=== PATIENT | male | born 1970 | race Caucasian/White ===

== ENCOUNTER → 2022-02-03 00:22 | Outpatient (CLI) | payer OTHER, SELFPAY ==
[2022-02-03 13:23] LABS: SARS-CoV-2 RNA PCR Negative
== END ==
PROVIDERS: PCP Family Medicine; Visit Provider Internal Medicine Gastroenterology
DX: Z01.812 Encounter for preprocedural laboratory examination (principal); Z20.822 Contact with and (suspected) exposure to COVID-19
CPT/HCPCS: C9803; U0003; U0005

== ENCOUNTER 2022-02-06 00:15 | Day surgery (SDC) | payer OTHER, SELFPAY ==
[2022-01-26 14:26] VITALS: BMI 33.2
--- NOTE | 2022-02-05 12:25 | PM.HPGS ---
History of Present Illness History of Present Illness Consent: Risks, benefits, and alternatives have been discussed and questions answered. Patient agrees to proceed with procedure. Chief complaint: family hx of colon ca, neoplasm screening Narrative: Emory Gonzales is a 51 year old male Referred for colon cancer screening. His father had rectal cancer. Review of Systems Review of Systems: All systems reviewed & are unremarkable except as noted in HPI and below PMFSH Past Medical History Medical History HLD (hyperlipidemia) Family History Family History Father Rectal cancer Diabetes mellitus Social History Social History Smoking packs per day: 0.5 Smoking cigarettes per day: 10.0 Years smoked: 30 Smoking pack-years: 15.00 Smoking status: Former smoker Tobacco type: cigarettes Second hand tobacco smoke exposure: No Smoking end date: 04/18/17 Alcohol intake: current Drinks per week: 18 Substance use: never Substance use type: does not use Living arrangements: with family Gender identity (if verbalized by the patient): Male Spiritual care concerns: No Meds Home Medications and Allergies Home Medications Medication Instructions Recorded Confirmed Type No Home Medications 10/15/20 02/06/22 History Allergies Allergy/AdvReac Type Severity Reaction Status Date / Time Fruit Allergy Anaphylaxis Uncoded 02/06/22 06:37 Exam Resp: Auscultation: clear to auscultation bilaterally Cardio: Rate: regular rate Rhythm: regular rhythm GI: GI Palp: Yes Soft to palpation and No Tenderness to palpation present (GI) Assessment and Plan Assessment and plan (1) Colon cancer screening: Code(s): Z12.11 - Encounter for screening for malignant neoplasm of colon Status: Acute Assessment and Plan: Colonoscopy with possible biopsy or polypectomy or cautery or injection of substances.
[2022-02-06 06:39] VITALS: BP 120/82; PULSE 98; RESP 20; TEMP 36.2; O2SAT 98; BMI 34.1
[2022-02-06] MEDS: LACTATED RINGERS 1,000 ML 150 ML IV CONT (06:41)
--- NOTE | 2022-02-06 07:46 | P.PNAN_ITS ---
Anes - Initial Pre Proc Eval Procedure: Operation Date: 02/06/22 08:00 Proposed Procedures p Screening Colonoscopy - Rj Guardado MD Date/Time: 02/06/22 07:46 Surgeon: Rj Guardado MD Pre Op Diagnosis: family hx of colon ca, neoplasm screening Patient Data Age: 51 Gender: M Height: 1.78 m Weight: 107.9 kg Last Vital Signs Temp 36.2 C L 02/06/22 06:39 Pulse 98 02/06/22 06:39 Resp 20 02/06/22 06:39 BP 120/82 02/06/22 06:39 Pulse Ox 98 02/06/22 06:39 Allergies Allergy/AdvReac Type Severity Reaction Status Date / Time Fruit Allergy Anaphylaxis Uncoded 02/06/22 06:37 Home Medications Medication Instructions Recorded Confirmed Type No Home Medications 10/15/20 02/06/22 History Patient hx anesthesia problems: none Family hx anesthesia problems: none Results Review: All pre-operative results and documents have been reviewed as part of the pre-operative evaluation. [facility] Past Medical History Medical History HLD (hyperlipidemia) Family History Family History Father Rectal cancer Diabetes mellitus Social History Social History Smoking packs per day: 0.5 Smoking cigarettes per day: 10.0 Years smoked: 30 Smoking pack-years: 15.00 Smoking status: Former smoker Tobacco type: cigarettes Second hand tobacco smoke exposure: No Smoking end date: 04/18/17 Alcohol intake: current Drinks per week: 18 Substance use: never Substance use type: does not use Living arrangements: with family Gender identity (if verbalized by the patient): Male Spiritual care concerns: No Anes - Eval Final PreProcedure Day of Procedure 02/06/22 07:46 Patient weight: obese Heart: regular rate and rhythm Lungs: decreased breath sounds Airway: Mallampati scale class II Neurological: alert and oriented Last oral intake: >/= 8 hours ASA classification: II Emergent: no Anesthetic plan: proceed Anesthesia type and monitoring: general GIVS and standard monitoring Results Review: All pre-operative results and documents have been reviewed as part of the pre-operative evaluation. Informed Consent: The patient's anesthetic plan and its attendant risks and benefits were discussed with the patient/family/POA. Questions were solicited and answers provided to the satisfaction of the patient/family/POA.
[2022-02-06] MEDS: SIMETHICONE ORAL SUSPENSION 20 MG/0.3 ML 30 ML BOTTLE 0.6 ML IRRIGATION (08:00)
[2022-02-06 08:14] VITALS: BP 99/63; PULSE 77; RESP 18; O2SAT 96
[2022-02-06 08:24] VITALS: BP 113/77; PULSE 78; RESP 20; O2SAT 98
[2022-02-06 08:34] VITALS: BP 117/88; PULSE 81; RESP 20; O2SAT 97
== END 2022-02-06 08:42 | disposition home or self-care (01) ==
PROVIDERS: PCP Family Medicine; Visit Provider Internal Medicine Gastroenterology
PROC: 0DJD8ZZ Inspection of Lower Intestinal Tract, Via Natural or Artificial Opening Endoscopic (ICD-10-PCS; CPT 45378; principal; 2022-02-06 08:00)
DX: Z12.11 Encounter for screening for malignant neoplasm of colon (principal); D12.8 Benign neoplasm of rectum; K62.1 Rectal polyp; Z80.0 Family history of malignant neoplasm of digestive organs; Z87.891 Personal history of nicotine dependence; E66.9 Obesity, unspecified; Z68.34 Body mass index [BMI] 34.0-34.9, adult
CPT/HCPCS: 45385; 45381; 88305; C9803; J2704; J7120; U0003; U0005

== ENCOUNTER 2025-06-11 01:27 | Day surgery (SDC) | payer OTHER, SELFPAY ==
[2025-05-25 13:00] VITALS: BMI 33.7
--- OUTSIDE RECORDS SUMMARY | 2025-06-11 01:31 | XMS_ITS | Patient Health Record ---
Author Organization [facility] Address [address] [place] [address] Care Team Providers Care Plumber Name Role Phone Artemio Singer Primary Care Provider Reason For Referral No Information Plan Of Treatment No Information
--- OUTSIDE RECORDS SUMMARY | 2025-06-11 01:31 | XMS_ITS | Clinical Summary ---
Author Organization [facility] Address [address] [place] [address] Phone Care Team Providers Care Sales Order Specialist Name Role Phone Provider, None Primary Care Provider Unavailabl e Social History Tobacco Use Types Packs/Day Years Used Date Smoking Tobacco: Never Assessed Sex and Gender Information Value Date Recorded Sex Assigned at Not on file Legal Sex Male 11:01 AM CDT Gender Identity Not on file Sexual Orientation Not on file Plan of Treatment Health Maintenance Due Date Last Done Comments Hepatitis C Virus (HCV) Screening 1970 TdaP Immunization 1970 Hepatitis B Immunization (1 of 3 - 19+ 3-dose series) 1989 Cologuard 2015 Colonoscopy 2015 Colorectal Cancer Screening 2015 Immunochemical Fecal Occult Blood 2015 Pneumococcal Immunization (5 0+ years) (1 of 1 - PCV) 02/25/2020 Zoster Immunization (1 of 2) 02/25/2020 SARS-COV-2 Immunization (1 - 2023- season) 2024 Influenza Immunization (#1) 2025 Respiratory Syncytial Virus (RSV) Immunization (Adult) (1 - 1-dose 75+ series) 2045 Human Papillomavirus (HPV) Immunization Aged Out No longer eligible b ased on patient's age to complete this topic Meningococcal Immunization (ACWY) Aged Out No longer eligible based on patient's age to complete this topic Rotavirus Immunization Aged Out No lo nger eligible based on patient's age to complete this topic Insurance [employer] Care Teams Sales Order Specialist Relationship Specialty Start Date End Date Provider, None [place] PCP - General 07/22/21
[2025-06-11 06:43] VITALS: BP 130/89; PULSE 88; RESP 20; TEMP 36.6; O2SAT 98; BMI 33.5
[2025-06-11] MEDS: LACTATED RINGERS 1,000 ML 150 ML IV CONT (06:50)
--- NOTE | 2025-06-11 07:31 | WPDANESEPPF ---
Anes - Initial Pre Proc Eval Procedure: Operation Date: 06/11/25 08:00 Proposed Procedures p Screening Colonoscopy - Kendrick Montero MD Date/Time: 06/11/25 07:31 Surgeon: Kendrick Montero MD Pre Op Diagnosis: neoplasm screening Patient Data Age: 55 Gender: M Height: 1.78 m Weight: 106.1 kg Last Vital Signs Temp 36.6 C 06/11/25 06:43 Pulse 88 06/11/25 06:43 Resp 20 06/11/25 06:43 BP 130/89 06/11/25 06:43 Pulse Ox 98 06/11/25 06:43 O2 Del Method Room Air 06/11/25 06:43 Allergies Allergy/AdvReac Type Severity Reaction Status Date / Time Fruit Allergy Anaphylaxis Uncoded 06/11/25 06:42 Home Medications ?Medication ?Instructions ?Recorded ?Confirmed ?Type No Home Medications 10/15/20 05/25/25 History Patient hx anesthesia problems: none Family hx anesthesia problems: none Results Review: All pre-operative results and documents have been reviewed as part of the pre-operative evaluation. [facility] Past Medical History Medical History HLD (hyperlipidemia) Family History Family History Father Rectal cancer Diabetes mellitus Social History Social History Smoking packs per day: 0.5 Smoking cigarettes per day: 10.0 Years smoked: 20 Smoking pack-years: 10.00 Smoking status: Former smoker Tobacco type: cigarettes Second hand tobacco smoke exposure: No Smoking end date: 04/18/17 Alcohol intake: current Drinks per week: 14 Substance use: never Substance use type: does not use Living arrangements: with family Occupation/Education: occupation Gender identity (if verbalized by the patient): Male Spiritual care concerns: No Anes - Eval Final PreProcedure Day of Procedure 06/11/25 07:31 Patient weight: obese Heart: regular rate and rhythm Lungs: clear to auscultation Airway: Mallampati scale class II Neurological: alert and oriented Last oral intake: >/= 8 hours ASA classification: II Emergent: no Anesthetic plan: proceed Anesthesia type and monitoring: general GIVS and standard monitoring Results Review: All pre-operative results and documents have been reviewed as part of the pre-operative evaluation. Informed Consent: The patient's anesthetic plan and its attendant risks and benefits were discussed with the patient/family/POA. Questions were solicited and answers provided to the satisfaction of the patient/family/POA.
--- NOTE | 2025-06-11 07:47 | PM.HPGS ---
History of Present Illness History of Present Illness Consent: Risks, benefits, and alternatives have been discussed and questions answered. Patient agrees to proceed with procedure. Chief complaint: neoplasm screening Narrative: Emory Gonzales is a 55 year old male with colon polyp in 2021, also father had colon cancer Review of Systems Review of Systems: All systems reviewed & are unremarkable except as noted in HPI and below PMFSH Past Medical History Medical History (Updated 06/11/25 @ 07:47 by Kendrick Montero MD) Adenomatous colon polyp HLD (hyperlipidemia) Family History Family History Father Rectal cancer Diabetes mellitus Social History Social History Smoking packs per day: 0.5 Smoking cigarettes per day: 10.0 Years smoked: 20 Smoking pack-years: 10.00 Smoking status: Former smoker Tobacco type: cigarettes Second hand tobacco smoke exposure: No Smoking end date: 04/18/17 Alcohol intake: current Drinks per week: 14 Substance use: never Substance use type: does not use Living arrangements: with family Occupation/Education: occupation Gender identity (if verbalized by the patient): Male Spiritual care concerns: No Meds Home Medications and Allergies Home Medications ?Medication ?Instructions ?Recorded ?Confirmed ?Type No Home Medications 10/15/20 05/25/25 History Allergies Allergy/AdvReac Type Severity Reaction Status Date / Time Fruit Allergy Anaphylaxis Uncoded 06/11/25 06:42 Vital Signs Vital Signs - 24 hr 06/11/25 06:43 Temperature 97.8 F Pulse Rate 88 Respiratory Rate 20 Blood Pressure 130/89 Pulse Oximetry 98 Oxygen Delivery Room Air Exam Const: General: comfortable and no acute distress HENMT: Face/Nose/Sinus: Normal nares present Eyes: General: appearance normal, both eyes and all related structures Neck: Neck: no JVD Resp: Auscultation: clear to auscultation bilaterally Cardio: Rate: regular rate Rhythm: regular rhythm GI: Inspection: non-distended GI Palp: Yes Soft to palpation Skin: General skin exam: normal color Neuro: General: gait normal Speech: normal speech Extrem: General: normal to inspection Psych: Mental Status: mental status grossly normal Assessment and Plan Assessment and plan (1) Adenomatous colon polyp: Code(s): D12.6 - Benign neoplasm of colon, unspecified Status: Acute Assessment and Plan: colonoscopy
--- NOTE | 2025-06-11 07:57 | S_PTH ---
PATIENT: Emory Gonzales LOC: [facility]#:[id number] AGE/SX: 55/M ROOM: RE06/11/[address]: Kendrick Montero MD : 1970 BED: DIS: 06/11/2025 SPEC #: [id number] RECD: 06/11/25 09:01 STATUS: [place] RESharon #: [id number] RUBA: 06/11/25 07:[address]: Kendrick Montero DEPT: [facility] Surgical RECD BY: Karen Reid ENTERED: 06/11/25 09:01 SP TYPE: Surgical OTHR DR: Chele Lu MD Tissues: A - Colon Polypectomy Procedures: Hematoxylin and Eosin Stain Gross and Microscopic Level 4
[2025-06-11 08:00] VITALS: BP 108/76; PULSE 76; RESP 19; O2SAT 96
[2025-06-11 08:10] VITALS: BP 117/80; PULSE 69; RESP 17; O2SAT 96
[2025-06-11 08:20] VITALS: BP 122/84; PULSE 72; RESP 21; O2SAT 95
== END 2025-06-11 08:29 | disposition home or self-care (01) ==
PROVIDERS: PCP Family Medicine; Referring Provider Internal Medicine Gastroenterology; Visit Provider Internal Medicine Gastroenterology
PROC: 0DJD8ZZ Inspection of Lower Intestinal Tract, Via Natural or Artificial Opening Endoscopic (ICD-10-PCS; CPT 45378; principal; 2025-06-11 08:00)
DX: Z12.11 Encounter for screening for malignant neoplasm of colon (principal); K63.5 Polyp of colon; Z80.0 Family history of malignant neoplasm of digestive organs; Z87.891 Personal history of nicotine dependence; E66.9 Obesity, unspecified; Z68.33 Body mass index [BMI] 33.0-33.9, adult
CPT/HCPCS: 45385; 88305; J2003; J2704; J7120

== ENCOUNTER 2025-09-24 20:46 | Emergency (ER) | payer OTHER, SELFPAY ==
--- NOTE | ~2025-09-24 | XR_ITS ---
XR foot RT min 3V 09/24/2025 23:01 Indication: Right foot laceration Procedure: 3 views right foot Comparison: No prior studies for comparison. Findings: There is soft tissue irregularity and soft tissue gas medial to the midfoot/hindfoot, suspicious for laceration. No foreign body. No underlying fracture. There are degenerative changes of the first metatarsal phalangeal joint. There are small degenerative calcaneal enthesophytes. No acute fracture. Impression: 1: No acute fracture. Reviewed, dictated and finalized at location [facility] Impression: 1: No acute fracture.
[2025-09-24 21:04] VITALS: BP 117/73; PULSE 104; RESP 16; TEMP 36.9; O2SAT 97
--- OUTSIDE RECORDS SUMMARY | 2025-09-24 22:18 | XMS_ITS | Clinical Summary ---
Author Organization [facility] Address [address] [place] [address] Phone Care Team Providers Care Slot Floor Person Name Role Phone Provider, None Primary Care [...] 02/25/2020 Zoster Immunization (1 of 2) 02/25/2020 Influenza Immunization (#1) 2025 SARS-COV-2 Immunization (1 - season) 2025 Respiratory Syncytial Virus (RSV) Immunization (Adult) [...] complete this topic Insurance [employer] Care Teams Slot Floor Person Relationship Specialty Start Date End Date Provider, None [place] PCP - General 07/22/21
--- OUTSIDE RECORDS SUMMARY | 2025-09-24 22:19 | XMS_ITS | Patient Health Record ---
Author Organization [facility] Address [address] [place] [address] Care Team Providers Care Neurosurgical Nurse Practitioner Name Role Phone Artemio Singer Primary Care Provider [phone] Reason For Referral No Information Plan Of Treatment No Information
[2025-09-24] MEDS: LIDOCAINE, EPINEPHRINE, TETRACAINE VISCOUS SOLN 3 ML TOPICAL (23:13)
--- NOTE | 2025-09-24 23:19 | ED_ITS ---
HPI - Wound/Laceration General Chief Complaint: Wound/Laceration Stated Complaint: right foot lac Time Seen by Provider: 09/24/25 21:50 Source: patient Mode of arrival: ambulatory Limitations: no limitations History of Present Illness HPI narrative: This is a 55 year old male that presents to the ER for laceration to the right foot. Reports his foot went through his deck. Reports pain and bleeding to the area. He is not up to date on tetanus vaccination. Related Data Allergies Allergy/AdvReac Type Severity Reaction Status Date / Time Fruit Allergy Anaphylaxis Uncoded 09/11/25 14:45 Review of Systems Review of Systems: All systems reviewed & are unremarkable except as noted in HPI and below PMFSH Past Medical History Medical History Adenomatous colon polyp HLD (hyperlipidemia) Family History Family History Father Rectal cancer Diabetes mellitus Social History Social History Social History: Smoking packs per day: 0.5 Smoking cigarettes per day: 10.0 Years smoked: 20 Smoking pack-years: 10.00 Tobacco type: cigarettes Second hand tobacco smoke exposure: No Smoking end date: 04/18/17 Alcohol intake: current Alcohol use details: Socially Substance use: never Substance use type: does not use Currently Unemployed: No Education: Don't Know Difficulty w/ Childcare or Family Care: No Living arrangements: with family Occupation/Education: occupation Gender identity (if verbalized by the patient): Male Sexual Orientation (if Verbalized by the Patient): Straight or Heterosexual Spiritual care concerns: No Exam Narrative: GENERAL: Well-appearing, well-nourished, and in no acute distress. HEAD: Normocephalic, atraumatic. EYES: EOMI. EXTREMITIES: Normal range of motion. No edema. Normal DP pulse. Normal sensation. Large curved laceration to the right foot into subcutaneous tissue SKIN: Warm, dry, no rash. NEURO: No focal deficits. Alert and oriented x3. PSYCH: Normal mood and affect Course Vital Signs Vital signs: Vital Signs Temperature 98.5 F 09/24/25 21:04 Pulse Rate 104 H 09/24/25 21:04 Respiratory Rate 16 09/24/25 21:04 Blood Pressure 117/73 09/24/25 21:04 Pulse Oximetry 97 09/24/25 21:04 Oxygen Delivery Room Air 09/24/25 21:04 Temperature 98.5 F 09/24/25 21:04 Pulse Rate 104 H 09/24/25 21:04 Respiratory Rate 16 09/24/25 21:04 Blood Pressure 117/73 09/24/25 21:04 Pulse Oximetry 97 09/24/25 21:04 Oxygen Delivery Room Air 09/24/25 21:04 Procedures Laceration Laceration 1: Date: 09/25/25 Site: lower extremity Side (If applicable): right Size (cm): 10 Description: linear Depth: simple, single layer Local Anesthetic: lidocaine 1% and with epi Amount of anesthesia used (mL): 6 Pre-repair: wound explored and irrigated ====== Skin Level ====== Skin layer closed with: nylon Size (cm): 3-0 Number of sutures: 14 Technique: simple, interrupted ====== Subcutaneous Layer ====== ====== Muscle Layer ====== ====== Tendon Layer ====== MDM - Wound/Laceration MDM Narrative Medical decision making narrative: Patient presents to the emergency department for laceration to his right foot. He is neurovascularly intact. Wound irrigated. Updated on tetanus vaccination. X-ray without acute osseous abnormality or evidence of foreign body. Will be started on prophylactic antibiotic. Educated on further wound care. He was given warnings to return to the ER Differential Diagnosis Differential diagnosis: Likely laceration, abrasion and avulsion of skin Imaging Data My impression: Right foot x-ray: No acute osseous abnormalities or evidence of foreign body Critical Care Time Critical Care Time Critical Care Time: No Discharge Plan Discharge Clinical Impression: Laceration Patient Disposition: Home Condition: Stable Instructions: Antibiotic Form, Care For Your Stitches (ED), Laceration (ED) Additional Instructions: Return to the emergency department if you experience fever, redness or swelling of your wound, abnormal drainage from your wound, or any other symptoms that are concerning to you. Apply antibiotic ointment daily. Do not soak the wound. Clean with mild soap and water daily. Take oral antibiotic as prescribed Follow-up with your primary care doctor for suture removal in 10-14 days. Patient Language: Turkmen Prescriptions: New cephalexin 500 mg capsule 500 mg PO Q8H 7 Days Qty: 21 0RF Follow-up/Referrals: Chele Lu MD [Primary Care Provider, Family Practice]
[2025-09-25] MEDS: TETANUS,DIPHTHERIA,AC PERTUSSIS ADULT (0.5 ML) BOOSTRIX IM (01:09)
== END 2025-09-25 01:08 | disposition home or self-care (01) ==
PROVIDERS: Emergency Provider Physician Assistant; PCP Family Medicine
DX: S91.311A Laceration without foreign body, right foot, initial encounter (principal); E78.5 Hyperlipidemia, unspecified; W13.3XXA Fall through floor, initial encounter; Z23 Encounter for immunization
CPT/HCPCS: 12004; 73630; 90471; 90715; 99283